=== PATIENT | female | born 1995 | race Hispanic/Latino ===

== ENCOUNTER 2018-03-12 13:02 | Emergency (ER) | payer OTHER, SELFPAY ==
[2018-03-12 13:30] LABS: Bilirubin Negative (Negative); Blood, Urine Negative (Negative); Clarity Clear (Clear); Glucose, Urine (Dipstick) Negative (Negative); Leukocyte Negative (Negative); Nitrite Negative (Negative); Protein, Urine (Dipstick) Negative (Neg-Trace); Urobilinogen 0.2 mg/dL (0.2-1.0)
[2018-03-12 13:33] LABS: Specific Gravity, Urine 1.005 (1.002-1.036)
[2018-03-12 13:34] LABS: Pregnancy Test - Urine (BHCG) Negative (Negative); Pregu Control Background? CLEAR/WHITE (CLR/WHITE); Pregu Control Bar Appear? YES (CONTROL BAR); Specific Gravity 1.005 (1.002-1.036)
[2018-03-12] MEDS ORDERED: Doxycycline 100 MG CAP ONE (14:02)
[2018-03-15 03:06] LABS: Chlamydia by PCR Not Detected (NotDetected); GC by PCR Not Detected (NotDetected)
== END 2018-03-12 14:06 | disposition home or self-care (01) ==
LOC: MADERS 13:02
DX: N73.9 Female pelvic inflammatory disease, unspecified (principal); F17.210 Nicotine dependence, cigarettes, uncomplicated
CPT/HCPCS: 81003; 81025; 87086; 87491; 87591; 99283

== ENCOUNTER 2018-04-08 09:24 | Emergency (ER) | payer SELFPAY | END 2018-04-08 09:50 | disposition left against medical advice (07) | LOC: MADERS 09:24 | DX: Z53.21 Procedure and treatment not carried out due to patient leaving prior to being seen by health care provider (principal) ==